=== PATIENT | female | born 1955 | race African-American/Black ===

== ENCOUNTER 2021-05-23 14:07 | Outpatient (CLI) | payer BC, SELFPAY ==
--- NOTE | ~2021-05-23 | CT_ITS ---
EXAMINATION:CT lung screening DATE: 05/23/2021 15:06 INDICATION: Personal history of tobacco dependence. Smoker who quit 10 years ago with 50 pack year hi story. TECHNIQUE: Computed tomography (CT) of the chest was performed without intravenous contrast. Automate d exposure control and iterative reconstruction technique were employed. The dose-length product (DLP ) was 89.18 mGy-cm. COMPARISON: Thyroid ultrasound 05/28/13 FINDINGS: There is mild dependent atelectasis bilaterally. There is mild bronchiectasis in right midd le lobe and lingula. There is a 4 mm nodule in right middle lobe. No pleural effusion. There is a chr onic multinodular goiter. There is left atrial enlargement of the heart. No pleural effusion. The indira tral pulmonary arteries are enlarged, consistent pulmonary arterial hypertension. There is mild thora cic spondylosis. IMPRESSION: 1. Lung-RADS category 2: Benign appearance or behavior. Continue annual screening with noncontrast lo w-dose chest CT in 12 months. Reviewed, dictated and finalized at location A. IMPRESSION: 1. Lung-RADS category 2: Benign appearance or behavior. Continue annual screeni ng with noncontrast low-dose chest CT in 12 months.
== END 2021-05-23 14:08 | disposition home or self-care (01) ==
LOC: ANHIMG 14:11
PROVIDERS: PCP Family Medicine; Visit Provider Physician Assistant
DX: Z12.2 Encounter for screening for malignant neoplasm of respiratory organs (principal); Z87.891 Personal history of nicotine dependence
CPT/HCPCS: 71271

== ENCOUNTER 2021-07-10 01:49 | Day surgery (SDC) | payer BC, SELFPAY ==
[2021-06-22 08:33] VITALS: BMI 35.6
[2021-07-10 09:53] VITALS: BP 137/88; PULSE 61; RESP 18; TEMP 35.7; O2SAT 100; BMI 34.4
[2021-07-10] MEDS: LACTATED RINGERS 1,000 ML 150 ML IV CONT (10:03)
--- NOTE | 2021-07-10 10:15 | WPDGICN ---
Assessment and Plan Assessment and plan (1) Screening for colon cancer: Code(s): Z12.11 - Encounter for screening for malignant neoplasm of colon Status: Acute Assessment and Plan: Patient presents for screening colonoscopy. Appears to be at average risk for colon polyps. Plan is for screening colonoscopy now further recommendations will be given after endoscopy. (2) Hypertrophic cardiomyopathy: Code(s): I42.2 - Other hypertrophic cardiomyopathy Status: Acute GI Consult Note Consult date/time: 07/10/21 10:15 HPI: Aliyah Kimble is a 65 year old female Presents for screening colonoscopy. Patient states that her current weight appetite and bowel movements are normal. She denies abdominal pain. She has had no bleeding. Family history is noncontributory. She desires neoplasia screening. Patient reports past medical history of hypertrophic heart. She has history of pulmonary hypertension. These are felt to be stable at present. Review of Systems Review of Systems: All systems reviewed & are unremarkable except as noted in HPI and below PMFSH Past Medical History Medical History (Updated 05/10/21 @ 12:49 by Fauzia Pelaez PA-C) Chronic constipation History of tobacco abuse Hyperthyroidism Hypertrophic cardiomyopathy Mixed hyperlipidemia Nicotine dependence, unspecified, uncomplicated Overactive bladder Vitamin D deficiency Family History Family History Mother Family history of diabetes mellitus in first degree relative Social History Social History (Updated 04/27/21 @ 14:31 by Fauzia Pelaez PA-C) Social History: Smoking packs per day: 1 Smoking cigarettes per day: 20.0 Years smoked: 45 Smoking pack-years: 45.00 Smoking status: Former smoker Tobacco type: cigarettes Second hand tobacco smoke exposure: Yes Smoking end date: 07/12/20 Alcohol intake: never Substance use: never Substance use type: does not use Living arrangements: with family Gender identity (if verbalized by the patient): Female Sexual Orientation (if Verbalized by the Patient): Straight or Heterosexual Spiritual care concerns: No Meds Home Medications and Allergies Home Medications Medication Instructions Recorded Confirmed Type antiarthritic combination no.2 900 500 mg PO DAILY 04/27/21 07/10/21 History mg tablet turmeric 400 mg capsule 500 mg PO BID 04/27/21 07/10/21 History Ging[place] Biloba 40 mg PO DAILY 06/22/21 07/10/21 History Remisemin 1 tablet PO BID 06/22/21 07/10/21 History Zinc 50 mg PO DAILY 06/22/21 07/10/21 History bisacodyl 5 mg PO BID 06/22/21 07/10/21 History calcium carbonate-vitamin D3 1 cap PO DAILY 06/22/21 07/10/21 History fenofibrate 160 mg tablet 160 mg PO DAILY #90 tablet 06/26/21 07/10/21 Rx hydrochlorothiazide 12.5 mg tablet 12.5 mg PO DAILY #90 tablet 06/26/21 07/10/21 Rx methimazole 5 mg tablet See Rx Instructions .ROUTE 06/26/21 07/10/21 Rx .COMPLEX #45 tablet metoprolol succinate 100 mg 100 mg PO QAM #90 tablet 06/26/21 07/10/21 Rx tablet,extended release 24 hr oxybutynin chloride 5 mg tablet See Rx Instructions .ROUTE 06/26/21 07/10/21 Rx .COMPLEX #90 tablet lubiprostone 24 mcg capsule See Rx Instructions .ROUTE 07/08/21 07/10/21 Rx .COMPLEX #180 capsule metoprolol succinate 50 mg See Rx Instructions .ROUTE 07/08/21 07/10/21 Rx tablet,extended release 24 hr .COMPLEX #90 tablet Allergies Allergy/AdvReac Type Severity Reaction Status Date / Time Ioeyvka-LPA-UwY Reductase Allergy Intermediate itching Verified 07/10/21 09:50 Inhibitor [Rehqwpy-Tae-Jbr Reductase Inhibitor] Vital Signs Vital Signs - 24 hr 07/10/21 09:53 Temperature 96.2 F L Pulse Rate 61 Respiratory Rate 18 Blood Pressure 137/88 Pulse Oximetry 100 Exam Narrative: Physical exam reveals patient be alert. Vital signs stable. HEАНДРЕЙ berger
--- NOTE | 2021-07-10 10:29 | WPDANESEPPF ---
Anes - Initial Pre Proc Eval Procedure: Operation Date: 07/10/21 10:30 Proposed Procedures p Screening Colonoscopy - David Rodríguez MD Date/Time: 07/10/21 10:29 Surgeon: David Rodríguez MD Pre Op Diagnosis: neoplasm screening Patient Data Age: 65 Gender: F Height: 1.5 m Weight: 77.4 kg Last Vital Signs Temp 96.2 F L 07/10/21 09:53 Pulse 61 07/10/21 09:53 Resp 18 07/10/21 09:53 BP 137/88 07/10/21 09:53 Pulse Ox 100 07/10/21 09:53 Allergies Allergy/AdvReac Type Severity Reaction Status Date / Time Iknwonn-CJW-ViC Reductase Allergy Intermediate itching Verified 07/10/21 09:50 Inhibitor [Pzrqoso-Hbc-Fae Reductase Inhibitor] Home Medications Medication Instructions Recorded Confirmed Type antiarthritic combination no.2 900 500 mg PO DAILY 04/27/21 07/10/21 History mg tablet turmeric 400 mg capsule 500 mg PO BID 04/27/21 07/10/21 History Gingko Biloba 40 mg PO DAILY 06/22/21 07/10/21 History Remisemin 1 tablet PO BID 06/22/21 07/10/21 History Zinc 50 mg PO DAILY 06/22/21 07/10/21 History bisacodyl 5 mg PO BID 06/22/21 07/10/21 History calcium carbonate-vitamin D3 1 cap PO DAILY 06/22/21 07/10/21 History fenofibrate 160 mg tablet 160 mg PO DAILY #90 tablet 06/26/21 07/10/21 Rx hydrochlorothiazide 12.5 mg tablet 12.5 mg PO DAILY #90 tablet 06/26/21 07/10/21 Rx methimazole 5 mg tablet See Rx Instructions .ROUTE 06/26/21 07/10/21 Rx .COMPLEX #45 tablet metoprolol succinate 100 mg 100 mg PO QAM #90 tablet 06/26/21 07/10/21 Rx tablet,extended release 24 hr oxybutynin chloride 5 mg tablet See Rx Instructions .ROUTE 06/26/21 07/10/21 Rx .COMPLEX #90 tablet lubiprostone 24 mcg capsule See Rx Instructions .ROUTE 07/08/21 07/10/21 Rx .COMPLEX #180 capsule metoprolol succinate 50 mg See Rx Instructions .ROUTE 07/08/21 07/10/21 Rx tablet,extended release 24 hr .COMPLEX #90 tablet Patient hx anesthesia problems: none Family hx anesthesia problems: none Results Review: All pre-operative results and documents have been reviewed as part of the pre-operative evaluation. [facility] Past Medical History Medical History (Updated 05/10/21 @ 12:49 by Fauzia Pelaez PA-C) Chronic constipation History of tobacco abuse Hyperthyroidism Hypertrophic cardiomyopathy Mixed hyperlipidemia Nicotine dependence, unspecified, uncomplicated Overactive bladder Vitamin D deficiency Family History Family History Mother Family history of diabetes mellitus in first degree relative Social History Social History (Updated 04/27/21 @ 14:31 by Fauzia Pelaez PA-C) Social History: Smoking packs per day: 1 Smoking cigarettes per day: 20.0 Years smoked: 45 Smoking pack-years: 45.00 Smoking status: Former smoker Tobacco type: cigarettes Second hand tobacco smoke exposure: Yes Smoking end date: 07/12/20 Alcohol intake: never Substance use: never Substance use type: does not use Living arrangements: with family Gender identity (if verbalized by the patient): Female Sexual Orientation (if Verbalized by the Patient): Straight or Heterosexual Spiritual care concerns: No Anes - Eval Final PreProcedure Day of Procedure 07/10/21 10:29 Patient weight: obese Heart: regular rate and rhythm Lungs: clear to auscultation Airway: Mallampati scale class II Neurological: alert and oriented Last oral intake: >/= 8 hours ASA classification: III Emergent: no Anesthetic plan: proceed Anesthesia type and monitoring: general GIVS and standard monitoring Results Review: All pre-operative results and documents have been reviewed as part of the pre-operative evaluation. Informed Consent: The patient's anesthetic plan and its attendant risks and benefits were discussed with the patient/family/POA. Questions were solicited and answers provided to the satisfaction of the patient/family/POA.
[2021-07-10 11:33] VITALS: BP 121/63; PULSE 63; RESP 22; O2SAT 99
[2021-07-10 11:43] VITALS: BP 118/62; PULSE 57; RESP 19; O2SAT 100
[2021-07-10 11:53] VITALS: BP 125/59; PULSE 64; RESP 16; O2SAT 100
== END 2021-07-10 12:09 | disposition home or self-care (01) ==
PROVIDERS: PCP Family Medicine; Visit Provider Internal Medicine Gastroenterology
PROC: 0DJD8ZZ Inspection of Lower Intestinal Tract, Via Natural or Artificial Opening Endoscopic (ICD-10-PCS; CPT 45378; principal; 2021-07-10 10:30)
DX: Z12.11 Encounter for screening for malignant neoplasm of colon (principal); I42.2 Other hypertrophic cardiomyopathy; E78.2 Mixed hyperlipidemia; E55.9 Vitamin D deficiency, unspecified; E05.90 Thyrotoxicosis, unspecified without thyrotoxic crisis or storm; Z87.891 Personal history of nicotine dependence; E66.9 Obesity, unspecified; Z68.34 Body mass index [BMI] 34.0-34.9, adult
CPT/HCPCS: 45378; J2704; J7120

== ENCOUNTER 2022-12-11 13:02 | Outpatient (CLI) | payer BC, SELFPAY ==
--- NOTE | ~2022-12-11 | XR_ITS ---
EXAM: XR femur LT min 2V DATE: 12/11/2022 12:58 HISTORY: M79.89Osoft tissue disorders, fall, medial pain to left femu . COMPARISON: None available. FINDINGS: Decreased mineralization. No acute fracture or dislocation. No lytic or blastic lesion. In cidental note of a nonaggressive appearing medial cortical thickening in the proximal tibia, possibly representing old healed trauma. Mild osteoarthritis at the left hip. Moderate osteoarthritis of the left knee. No erosion or periosteal change. Multiple pelvic phleboliths. IMPRESSION: No acute osseous finding in the left femur. Reviewed, dictated and finalized at location K.
--- NOTE | ~2022-12-11 | US_ITS ---
EXAMINATION: US venous doppler [facility] DATE: 12/11/2022 12:27 INDICATION: Lower limb pain TECHNIQUE: Grayscale ultrasound images without and with compression and Doppler ultrasound images of the bilateral lower extremity veins were obtained. COMPARISON: None. FINDINGS: The visualized portions of right common femoral vein, profunda (deep) femoral vein, femoral vein, pop liteal vein, posterior tibial veins, peroneal veins, gastrocnemius vein and greater saphenous vein ou tflow are patent. There appear to be a few small serpiginous and branching anechoic subcutaneous vari richard along and increased echogenicity of the surrounding subcutaneous fat at the region of a reported knot at the proximal right thigh. The visualized portions of left common femoral vein, profunda femoral vein, femoral vein, popliteal v ein, posterior tibial veins, peroneal veins, gastrocnemius vein and greater saphenous vein outflow ar e patent. 2.5 x 1.0 x 0.8 cm anechoic Nick's cyst at the left popliteal fossa. IMPRESSION: 1. No deep venous thrombosis in either lower limb. 2. Small left Nick's cyst. 3. Increased echogenicity of the subcutaneous fat consistent with inflammation surrounding a few subc utaneous varicosities at the proximal right thigh which suggests possibility of thrombophlebitis. Reviewed, dictated and finalized at location L. IMPRESSION: 1. No deep venous thrombosis in either lower limb. 2. Small left Nick's cyst. 3. Increased echogenicity of the subcutaneous fat consistent with inflammation surrounding a few subcutaneous varicosities at the proximal right thigh which s uggests possibility of thrombophlebitis.
--- NOTE | ~2022-12-11 | XR_ITS ---
Left ankle Technique: AP and lateral views were obtained. Clinical History: Soft tissue disorder, swelling, pain Findings: No acute fracture or dislocation is seen. Osseous alignment is anatomic. Ankle mortise and other visualized joint spaces are preserved. Soft tissue swelling at the ankle noted. Impression: No fracture or dislocation. Soft tissue swelling diffusely about the ankle. Reviewed, dictated and finalized at location . Impression: No fracture or dislocation. Soft tissue swelling diffusely about the ankle.
[2022-12-11 14:08] LABS: Basophils Absolute Auto 0.1 K/mm3 (0.0-0.1); Basophils Percent Auto 0.5 % (0.2-1.2); Eosinophils Absolute Auto 0.4 K/mm3 (0-0.3); Eosinophils Percent Auto 3.3 % (0-4.4); Hematocrit 43.4 % (37.0-47.0); Hemoglobin 13.6 g/dL (12.0-15.0); Immature Granulocyte Absolute 0.03 K/mm3 (0.00-0.031); Immature Granulocyte Percent A 0.3 % (0-0.5); Lymphocytes Absolute Auto 3.05 K/mm3 (0.9-3.2); Mean Corpuscular HGB Conc 31.3 g/dl (32-36); Mean Corpuscular Hemoglobin 27.3 pg (26-34); Mean Platelet Volume 11.7 fl (7.4-10.4); Monocytes Absolute Auto 0.6 K/mm3 (0.1-0.6); Monocytes Percent Auto 5.6 % (2.6-8.5); Neutrophils Absolute Auto 6.5 K/mm3 (1.3-6.7); Neutrophils Percent Auto 61.3 % (45.5-73.1); Platelet Count Result 274 k/mm3 (150-375); Red Blood Count 4.99 M/mm3 (4.2-5.4); Red Cell Distribution Width 14.6 % (11.5-14.5); White Blood Count 10.5 K/mm3 (4.5-10.0)
[2022-12-11 14:20] LABS: Alanine Aminotransferase 14 U/L (6-35); Albumin Level 4.1 g/dL (3.5-5.1); Alkaline Phosphatase 52 U/L (38-126); Anion Gap 1 mmol/L (8-16); Aspartate Amino Transferase 25 U/L (14-36); Bilirubin,Total 0.6 mg/dL (0.2-1.3); Blood Urea Nitrogen 14 mg/dL (7-17); Calcium 9.1 mg/dL (8.4-10.2); Carbon Dioxide 36 mmol/L (22-30); Chloride 102 mmol/L (98-107); Estimated Glomerular Filt Rate > 60; Glucose 86 mg/dL (65-110); Potassium 3.1 mmol/L (3.4-5.0); Sodium 139 mmol/L (137-145)
[2022-12-11 16:10] LABS: Erythrocyte Sedimentation Rate 12 mm/hr (0-20)
== END 2022-12-11 13:03 | disposition home or self-care (01) ==
PROVIDERS: PCP Family Medicine; Visit Provider Nurse Practitioner Gerontology
DX: M79.606 Pain in leg, unspecified (principal); M79.89 Other specified soft tissue disorders; M71.22 Synovial cyst of popliteal space [Baker], left knee
CPT/HCPCS: 36415; 73552; 73600; 80053; 85025; 85652; 93970

== ENCOUNTER 2022-12-27 13:21 | Outpatient (CLI) | payer BC, SELFPAY ==
--- NOTE | ~2022-12-27 | DEXA_ITS ---
Bone Density Report Name: JOELLE HURT Age: 67 Sex: Female Ethnicity: Black Date of : 1955 Indication: osteopenia; height loss; postmenopausal Referring Provider: ZAINAB CHAND Study: Bone densitometry was performed. Exam Date: December 27, 2022 Accession number: [id number] Bone Density: Region BMD T-score Z-score Classification AP Spine(L1-L4) 0.846 -1.8 -0.7 Osteopenia Femoral Neck (Left) 0.805 -0.4 0.3 Normal Total Hip (Left) 0.960 0.1 0.6 Normal Femoral Neck (Right) 0.822 -0.2 0.4 Normal Total Hip (Right) 0.942 0.0 0.4 Normal Total Hip Mean 0.951 0.1 0.5 Normal World Health Organization criteria for BMD impression classify patients as: Normal (T-score at or above -1.0), Osteopenia (T-score between -1.0 and -2.5), or Osteoporosis (T-score at or below -2.5). 10-year Fracture Risk(1): Major Osteoporotic Fracture 2.9% Hip Fracture 0.2% Reported Risk Factors: [place] (Black), Neck BMD=0.805, BMI=34.3, smoking (1) FRAX(R) Version 3.08. Fracture probability calculated for an untreated patient. Fracture probability may be lower if the patient has received treatment. Previous Exams: Region Exam Age BMD T-score BMD Change BMD Change Date g/cm2 vs Baseline vs Previous AP Spine (L1-L4) 12/27/2022 67 0.846 -1.8 -0.034 (-3.9%) -0.034 (-3.9%) 12/04/2018 63 0.880 -1.5 Total Hip(Left) 12/27/2022 67 0.960 0.1 -0.031 (-3.1%) -0.031 (-3.1%) 12/04/2018 63 0.991 0.4 Total Hip(Right) 12/27/2022 67 0.942 0.0 -0.058 (-5.8%) -0.058 (-5.8%) 12/04/2018 63 1.000 0.5 *Denotes significance at 95% confidence level, LSC for AP Spine = 0.022 g/cm2, LSC for Total Hip = 0.027 g/cm2 Clinical Information Provided by Patient: Smokes Patient maximum height was 59 Menopause Age: 55 No regular weight bearing exercise Drinks caffeinated beverages Onset of menses at age 12 Number of children 3 Impression: The patient has low bone mass, based on the Total Spine T-score. The patient has an estimated ten-year risk of hip fracture of 0.2% and an estimated ten-year risk of major fracture of 2.9%, based on the WHO FRAX algorithm. The patient has risk factors, including: smoking. The BMD for the AP Spine (L1-L4) decreased, changing by -3.9% since the last DXA exam. The BMD for the Total Hip(Left) decreased, changing by -3.1% since the last DXA exam. The BMD for the Total Hip(Right) decreased, changing by -5.8% since the
--- NOTE | ~2022-12-27 | CT_ITS ---
EXAMINATION: CT lung screening DATE: 12/27/2022 14:27 INDICATION: Lung cancer screening TECHNIQUE: Computed tomography (CT) of the chest was performed without intravenous contrast. The dose -length product was 98.17 mGy-cm. Automated exposure control and iterative reconstruction technique were employed. COMPARISON: CT dated 05/23/2021 FINDINGS: Heart size normal. No significant pleural or pericardial effusion. There is atherosclerosis of the aorta and coronary arteries. No thoracic lymphadenopathy. Stable 3 mm right middle lobe nodul e, image 61. No endobronchial lesions. No focal airspace consolidation. No pneumothorax. Calcified gr anuloma right upper lobe. No acute osseous abnormality. Mild thoracic spondylosis. IMPRESSION: 1. Lung-RADS category 2: Benign appearance or behavior. Continue annual screening with noncontrast lo w-dose chest CT in 12 months. Reviewed, dictated and finalized at location L. IMPRESSION: 1. Lung-RADS category 2: Benign appearance or behavior. Continue annual screeni ng with noncontrast low-dose chest CT in 12 months.
--- NOTE | ~2022-12-27 | MM_ITS ---
EXAMINATION: MM screening [facility] BI w bryanna HISTORY: Screening mammogram TECHNIQUE: Craniocaudal and mediolateral oblique 3-D tomosynthesis images were obtained and synthetic 2-D images were generated. CAD analysis was submitted and interpreted. COMPARISON: 12/04/2018, 01/31/2011 BREAST PARENCHYMAL COMPOSITION: There are scattered areas of fibroglandular density. FINDINGS: No suspicious mass, calcification, or architectural distortion are identified in either gregorio ast to suggest malignancy. There has been no suspicious interval change. IMPRESSION: 1. No mammographic evidence of malignancy. 2. Recommend routine screening mammography in one year. BI-RADS Category 1: Negative Reviewed, dictated and finalized at location A.
== END 2022-12-27 13:22 | disposition home or self-care (01) ==
PROVIDERS: PCP Family Medicine; Visit Provider Nurse Practitioner Gerontology
DX: Z12.2 Encounter for screening for malignant neoplasm of respiratory organs (principal); Z12.31 Encounter for screening mammogram for malignant neoplasm of breast; F17.210 Nicotine dependence, cigarettes, uncomplicated; Z78.0 Asymptomatic menopausal state; I42.2 Other hypertrophic cardiomyopathy; E78.2 Mixed hyperlipidemia; E05.90 Thyrotoxicosis, unspecified without thyrotoxic crisis or storm; M85.88 Other specified disorders of bone density and structure, other site
CPT/HCPCS: 71271; 77063; 77067; 77080

== ENCOUNTER 2024-01-07 15:31 | Outpatient (CLI) | payer OTHER, SELFPAY ==
--- NOTE | ~2024-01-07 | CT_ITS ---
CT Scan of the Chest without Contrast: Clinical Indication: Lung cancer screening, nicotine dependence Technique: Contiguous sections were acquired throughout the chest without intravenous contrast. Dose reduction technique was used on this scan by utilizing automated exposure control and iterative recon struction technique. The dose-length product (DLP) was 114.94 mGy-cm. COMPARISON: 12/27/2022 Findings: Stable probable thyroid nodules present. There is no evidence of any significant mediastinal, hilar or axillary lymphadenopathy. Atherosclerot ic calcifications of the aorta are present. There is no evidence of pleural or pericardial effusion. Stable 3 mm fissural nodule along the right minor fissure. Images through the upper abdomen reveal cholelithiasis. Impression: Lung RADS 2: Benign appearance. 12 month follow-up screening CT advised. Reviewed, dictated and finalized at [facility]. Impression: Lung RADS 2: Benign appearance. 12 month follow-up screening CT advised.
== END 2024-01-07 15:32 | disposition home or self-care (01) ==
PROVIDERS: PCP Family Medicine; Visit Provider Physician Assistant
DX: Z12.2 Encounter for screening for malignant neoplasm of respiratory organs (principal); Z87.891 Personal history of nicotine dependence
CPT/HCPCS: 71271

== ENCOUNTER 2024-01-20 09:32 | Outpatient (CLI) | payer OTHER, SELFPAY ==
--- NOTE | 2024-01-20 09:38 | ECHO_ITS ---
Patient Info Name: Aliyah Kimble Age: 68 years : 1955 Gender: Female Ht: 59 in Wt: 167 lbs BSA: 1.81 m2 HR: 60 bpm BP: 113 / 78 mmHg Technical Quality: Fair Exam Date: 01/20/2024 9:53 AM Exam Location: Echo Lab Patient Status: Outpatient Admit Date: 01/20/2024 Staff Ordering Physician: Nelly Rodriguez PA-C Chemistry Intern: Wily Leach RDCS Attending Provider: Dana Garcia MD Referring Physician: Michael SKINNER; Exam Type: CA echo doppler color flow Study Info Indications I42.1 - Obstructive hypertrophic cardiomyopathy Complete two-dimensional, color flow and Doppler transthoracic echocardiogram is performed. Summary 1. Complete two-dimensional, color flow and Doppler transthoracic echocardiogram is performed. 2. Left ventricular chamber dimension is normal. 3. Ventricular septum is severely sigmoid shaped. Resting mean LVOT gradient is 2 mmHg which is not obstructive. 4. Left ventricular systolic function is normal, estimated at 65-70%. 5. There is mildly increased left ventricular wall thickness. 6. The left ventricular diastolic function is grade I diastolic dysfunction. 7. E/e' 26 is elevated. 8. Left atrial chamber dimension is severely enlarged. 9. The mitral valve has moderately calcified annulus. 10. There is mild mitral valve regurgitation. 11. No pulmonary hypertension, estimated pulmonary arterial systolic pressure is 29 mmHg. Left Ventricle E/e' 26 is elevated. Ventricular septum is severely sigmoid shaped. Resting mean LVOT gradient is 2 mmHg which is not obstructive. Left ventricular chamber dimension is normal. Left ventricular systolic function is normal, estimated at 65-70%. There is mildly increased left ventricular wall thickness. The left ventricular diastolic function is grade I diastolic dysfunction. Right Ventricle Right ventricular systolic function is normal and with normal TAPSE 1.9 cm. Right ventricular chamber dimension is normal. Left Atria Left atrial chamber dimension is severely enlarged. Right Atria Right atrial chamber dimension is normal. Aortic Valve The aortic valve is trileaflet. There is no aortic valve stenosis. There is no aortic valve regurgitation. Pulmonic Valve There is no pulmonic regurgitation. Mitral Valve The mitral valve has moderately calcified annulus. There is no mitral valve stenosis. There is mild mitral valve regurgitation. Tricuspid Valve There is no tricuspid valve regurgitation. No pulmonary hypertension, estimated pulmonary arterial systolic pressure is 29 mmHg. Pericardium/Pleural There is no pericardial effusion. Inferior Vena Cava Normal inferior vena cava with >50% collapse upon inspiration consistent with normal right atrial pressure, 5 mmHg. Aorta The aortic root size at the sinus of Valsalva is normal. Left Ventricular Outflow Tract Name Value Normal LVOT 2D LVOT Diameter 1.9 cm LVOT Doppler LVOT Peak Gradient 6 mmHg LVOT Mean Gradient 3 mmHg LVOT VTI 28 cm LVOT VTI/AV VTI Ratio 1.0 LVOT Stroke Volume 79 ml LVOT CO
== END 2024-01-20 09:33 | disposition home or self-care (01) ==
LOC: ANHCARD 09:33
PROVIDERS: PCP Family Medicine; Visit Provider Family Medicine
DX: I42.1 Obstructive hypertrophic cardiomyopathy (principal); I34.0 Nonrheumatic mitral (valve) insufficiency
CPT/HCPCS: 93306

== ENCOUNTER 2025-01-07 12:53 | Outpatient (CLI) | payer OTHER, SELFPAY ==
--- NOTE | ~2025-01-07 | CT_ITS ---
CT Scan of the Chest without Contrast: Clinical Indication: Lung cancer screening, nicotine dependence Technique: Contiguous sections were acquired throughout the chest without intravenous contrast. Dose reduction technique was used on this scan by utilizing automated exposure control and iterative recon struction technique. The dose-length product (DLP) was 129.33 mGy-cm. COMPARISON: 01/07/2024 Findings: There is no evidence of any significant mediastinal, hilar or axillary lymphadenopathy. The mediastin al soft tissues appear normal. There is no evidence of pleural or pericardial effusion. The lungs are clear. No pulmonary nodules or infiltrates are noted. Images through the upper abdomen reveal no abnormalities. Impression: Lung RADS 1: Negative. 12 month follow-up screening CT advised. Reviewed, dictated and finalized at location . Impression: Lung RADS 1: Negative. 12 month follow-up screening CT advised.
--- OUTSIDE RECORDS SUMMARY | 2025-01-07 13:00 | XMS_ITS | Encounter Summary ---
Author Organization [facility] Address [address] [place] [id number] Care Team Providers Care Safety Associate Name Role Phone Dana Garcia MD Primary Care Provider Dana Garcia MD Primary Care Provider Encounter Details Date Type Department Care Team (Late st Contact Info) Description 08/23/2016 Orders Only [facility] ProviderZaki MD [address] [place], [place] [id number] Social History Tobacco Use Types Packs/Day Years Used Date Smoking Tobacco: Former Cigarettes Q uit: 08/12/2010 Alcohol Use Standard Drinks/Week Comments No 0 (1 standard drink = 0.6 oz pur e alcohol) Comments Unknown Sex and Gender Information Value Date Recorded Sex Assigned at Not on file Legal Sex Female 5:11 PM WOOL C[employer]ER Gender Identity Female 06/19/2021 7:35 AM WOOL CARDER Sexual Orientation Not on file documented as of this encounter Plan of Treatment Not on file documented as of this encounter Procedures Procedure Name Priority Date/Time Associated Diagnosis Comments CARDIOLOGY REPORT 08/23/2016 documented in this encounter Results * CARDIOLOGY REPORT (08/23/2016) Anatomical Region Laterality Modality Other Narrative 08/23/2016 Ordered by an unspecified provider. Historical Provider [facility] Final Result documented in this encounter Visit Diagnoses Not on filedocumented in this encounter Care Teams Safety Associate Relationship Specialty Start Date End Date Dana Garcia MD [address] [place] [address] PCP - General 11/09/16 Dana Garcia MD [address] [place] [address] PCP - General 03/05/13 11/08/16 documented as of this encounter
--- OUTSIDE RECORDS SUMMARY | 2025-01-07 13:00 | XMS_ITS | Referral Summary ---
Author Organization [facility] [address] Address [address] [place] [address] Care Team Providers Care Window Glazier Name Role Phone Dana Garcia MD Primary Care Provider Allergies No known active allergies Medications ginkgo biloba 40 mg capsule 40 mg. 0 2 Active aspirin 81 mg tablet Take one by mouth one time per day 0 0 8 Active Additional Information Patient not taking.Reported on 06/19/2021 methIMAzole (TAPAZOLE) 5 mg tablet take 1 tablet by oral route every day 0 0 5 Active fenofibrate (TRIGLIDE) 160 mg tablet take 1 tablet by oral route every day 0 0 7 Active cholecalciferol (VITAMIN D-3) 1,000 unit Take 600 Units by mouth daily Active bisacodyl 5 mg tablet Take 10 mg by mouth 2 (two) times a day. Active lubiprostone (AMITIZA) 24 mcg capsule Take 24 mcg by mouth 2 (two) times a day with meals. Active metoprolol XL (TOPROL-XL) 100 mg 24 hr tablet Take 100 mg by mouth every morning 1 Active metoprolol XL (TOPROL-XL) 50 mg extended release tablet Take 50 mg by mouth daily 1 Active hydroCHLOROthia zide (HYDRODIURIL) 12.5 mg tablet Take 12.5 mg by mouth daily 1 Active oxybutynin (DITROPAN) 5 mg tablet TAKE 1 TABLET BY MOUTH EVERYDAY AT BEDTIME 1 Active black cohosh 20 mg tablet Take by mouth Remifemin Active turmeric root extract 500 mg capsule Take 500 mg by mouth 2 (two) times a day Active zinc 50 mg tablet Take 50 mg by mouth daily Active glucosamine HCl 500 mg tablet Take 500 mg by mouth daily Active Active Problems Problem Noted Date Diagnosed Date Hyperlipidemia 12/26/2013 Overview (11/14/2016): HYPERLIPIDEMIA NEC/NOS Hypertrophic obstructive cardiomyopathy 12/27/19 14 Overview (11/15/2016): HYPERTR OBSTR CARDIOMYOP Social History Tobacco Use Types Packs/Day Years Used Date Smoking Tobacco: Former Smokeless Tobacco: Never Alcohol Use Standard Drinks/Week Comments No 0 (1 standard drink = 0.6 oz pur e alcohol) Personal Safety Answer Date Recorded Getting School Help Needed Not on file 10/06 Comments Unknown Sex and Gender Information Value Date Recorded Sex Assigned at Not on file Legal Sex Female 5:11 PM CARE TRANSITION COORDINATOR Gender Identity Female 06/19/2021 7:35 AM CARE TRANSITION COORDINATOR Sexual Orientation Not on file Last Filed Vital Signs Vital Sign Reading Time Taken Comments Blood Pressure 116/72 07/27/2021 11:47 AM CARE TRANSITION COORDINATOR Pulse 76 07/27/2021 11:47 AM CARE TRANSITION COORDINATOR Temperature - - Respiratory Rate - - Oxygen Saturation 96% 07/27/2021 11:47 AM CARE TRANSITION COORDINATOR Inhaled Oxygen Concentration - - Weight 80.3 kg (177 lb) 07/27/2021 11:47 AM CARE TRANSITION COORDINATOR Height 149.9 cm (4' 11) 07/27/2021 11:47 AM CARE TRANSITION COORDINATOR Body Mass Index 35.75 07/27/2021 11:47 AM CARE TRANSITION COORDINATOR Plan of Treatment Not on file Procedures Procedure Name Priority Date/Time Associated Diagnosis Comments COLONOSCOPY IMAGES 11/10/2015 from Last 3 Months or Most Recently Relevant to Health Maintenance Results * COLONOSCOPY IMAGES (11/10/2015) Anatomical Region Laterality Modality Other Narrative 11/10/2015 Ordered by an unspecified provider. us Historical Provider GI PROCEDURE ORDERABLES F inal Result from Last 3 Months or Most Recently Relevant to Health Maintenance Insurance [facility] Care Teams Window Glazier Relationship Specialty Start Date End Date Dana Garcia MD [address] [facility] [address] [place] [address] PCP - General 11/09/16
--- OUTSIDE RECORDS SUMMARY | 2025-01-07 13:01 | XMS_ITS | Clinical Summary ---
Author Organization [facility] [address] Address [address] [place] [address] Care Team Providers Care Information Assurance Analyst Name Role Phone Dana Garcia MD Primary [...] 12/27/19 14 Overview (11/15/2016): HYPERTR OBSTR CARDIOMYOP Surgical History Surgery Date Site/Laterality Comments TUBAL LIGATION 08/12/1975 - 08/11/1976 Bilateral tubal ligation Medical History Medical History Date Comments Heart disease 1998 Thyroid disease 2016 Family History Medical History Relation Name Comments Cirrhosis Brother 2 cirrhosis; Caus e of : cirrhosis Relation Name Status Comments Brother 1 (Age 44) Brother 2 Social History Tobacco Use Types Packs/Day Years [...] on file Legal Sex Female 5:11 PM SET OFF PRESS OPERATOR Gender Identity Female 06/19/2021 7:35 AM SET OFF PRESS OPERATOR Sexual Orientation Not on file Obstetrics History Last Filed Vital Signs Vital Sign Reading Time Taken Comments Blood Pressure 116/72 07/27/2021 11:47 AM SET OFF PRESS OPERATOR Pulse 76 07/27/2021 11:47 AM SET OFF PRESS OPERATOR Temperature - - Respiratory Rate - - Oxygen Saturation 96% 07/27/2021 11:47 AM SET OFF PRESS OPERATOR Inhaled Oxygen Concentration - - Weight 80.3 kg (177 lb) 07/27/2021 11:47 AM SET OFF PRESS OPERATOR Height 149.9 cm (4' 11) 07/27/2021 11:47 AM SET OFF PRESS OPERATOR Body Mass Index 35.75 07/27/2021 11:47 AM SET OFF PRESS OPERATOR Plan of Treatment Health Maintenance Due Date Last Done Comments Breast Cancer Screening-Mammogram 1955 Depression Screening 1956 Fall Risk Assessment 1956 Hepatitis C Screening 1956 Osteoporosis Screening-Bone Density Scan 1956 Hepatitis B Screening 1974 DTaP/Tdap/Td Vaccine (1 - Tdap) 09/14/2004 5 Zoster Vaccine (1 of 2) 2006 Pneumococcal vaccine 65+ (2 of 2 - PCV) 05/28/2014 05/28/2013 Well Visit 65+ 2021 Covid-19 Vaccine (3 - 2023-2 5 season) 2024 06/07/2021, 05/10/2021 Influenza Vaccine (Season Ended) 2025 Colon Cancer Screening-Colonoscopy 11/09/2025 11/10/2015, 11/10/2015, 09/28/2010 Colon Cancer Screening-CT Colonography Discontinued 11/10/2015, 11/10/2015, 09/28/2010 Colon Cancer Screening-DNA Stool Discontinued 11/10/2015, 11/10/2015, 09/28/2010 Colon Cancer Screening-FIT Discontinued 11/09, 11/10/2015, 09/28/2010 Colon Cancer Screening-Sigmoidoscopy Discontinue d 11/10/2015, 11/10/2015, 09/28/2010 Procedures Procedure Name Priority Date/Time Associated Diagnosis Comments COLONOSCOPY IMAGES 11/10/2015 from Last 3 Months or Most Recently Relevant to Health Maintenance Results * COLONOSCOPY IMAGES (11/10/2015) Anatomical Region Laterality Modality Other Narrative 11/10/2015 Ordered by an unspecified provider. us Historical Provider GI PROCEDURE ORDERABLES F inal Result from Last 3 Months or Most Recently Relevant to Health Maintenance Insurance [employer] [place] Care Teams Information Assurance Analyst Relationship Specialty Start Date End Date Dana Garcia MD [address] [facility] [address] [place] [address] PCP - General 11/09/16
--- OUTSIDE RECORDS SUMMARY | 2025-01-07 13:01 | XMS_ITS | Encounter Summary ---
Author Organization [facility] Address [address] [facility] [address] [place] [id number] Care Team Providers Care Copy Holder Name Role Phone Dana Garcia MD Primary Care Provider Dana Garcia MD Primary Care Provider Encounter Details Date Type Department Care Team (Late st Contact Info) Description 10/01/2016 Orders Only [facility] ProviderZaki MD [address] [place], [place] [id number] Social History Tobacco Use Types Packs/Day Years Used Date Smoking Tobacco: Former Cigarettes Q uit: 08/12/2010 Alcohol Use Standard Drinks/Week Comments No 0 (1 standard drink = 0.6 oz pur e alcohol) Comments Unknown Sex and Gender Information Value Date Recorded Sex Assigned at Not on file Legal Sex Female 5:11 PM MINING DETAIL DRAFTSPERSON Gender Identity Female 06/19/2021 7:35 AM MINING DETAIL DRAFTSPERSON Sexual Orientation Not on file documented as of this encounter Plan of Treatment Not on file documented as of this encounter Procedures Procedure Name Priority Date/Time Associated Diagnosis Comments CARDIOLOGY REPORT 10/01/2016 documented in this encounter Results * CARDIOLOGY REPORT (10/01/2016) Anatomical Region Laterality Modality Other Narrative 10/01/2016 Ordered by an unspecified provider. Historical Provider [facility] Final Result documented in this encounter Visit Diagnoses Not on filedocumented in this encounter Care Teams Copy Holder Relationship Specialty Start Date End Date Dana Garcia MD [address] [place] [address] PCP - General 11/09/16 Dana Garcia MD [address] [place] [address] PCP - General 03/05/13 11/08/16 documented as of this encounter
== END 2025-01-07 12:54 | disposition home or self-care (01) ==
PROVIDERS: PCP Family Medicine; Visit Provider Student in an Organized Health Care Education/Training Program
DX: Z12.2 Encounter for screening for malignant neoplasm of respiratory organs (principal); Z87.891 Personal history of nicotine dependence
CPT/HCPCS: 71271

== ENCOUNTER 2025-03-31 16:24 | Outpatient (CLI) | payer OTHER, SELFPAY ==
--- NOTE | ~2025-03-31 | XR_ITS ---
XR knee RT 3V 03/31/2025 16:43 INDICATION: Intermittent right knee pain PROCEDURE: 3 views right knee COMPARISON: No prior studies for comparison. FINDINGS: Fracture, dislocation or subluxation is not identified. No significant joint effusion. There is focal soft tissue swelling inferior to the patella superficially. No foreign bodies are identified. IMPRESSION: 1: NO ACUTE BONE OR JOINT ABNORMALITY IDENTIFIED. 2: Focal oval area of soft tissue swelling anterior to the proximal tibia below the patella. Reviewed, dictated and finalized at location A.
== END 2025-03-31 16:25 | disposition home or self-care (01) ==
PROVIDERS: PCP Family Medicine; Visit Provider Family Medicine
DX: M79.89 Other specified soft tissue disorders (principal)
CPT/HCPCS: 73562